=== PATIENT | male | born 1965 | race Caucasian/White ===

== ENCOUNTER 2024-11-18 02:50 | Day surgery (SDC) | payer BC, SELFPAY ==
[2024-11-15 13:43] VITALS: BMI 29.2
--- NOTE | 2024-11-15 13:54 | SUR.PREOP ---
Spoke with patient regarding medication Eliquis. patient verbalizes understanding that the last dose is to be taken on 11/15/2024. Dr Wilburn had requested that patient be off of eliquis for a total of 4 days. 2 days prior to procedure and 2 days after and patient aware of this.
--- OUTSIDE RECORDS SUMMARY | 2024-11-18 02:53 | XMS_ITS | Clinical Summary ---
Author Organization [facility] Address [address] [place] [address] Care Team Providers Care Defect Repairer Glassware Name Role Phone Annabella Wilburn MD Primary Care Provider [phone] Allergies No known active allergies Medications amLODIPine (NORVASC) 2.5 mg tablet Take 1 tablet (2.5 mg total) by mouth daily 09/04/20 23 Active Additional Information Patient taking differently:2.5 mg oralNightly, Indications: hypertension, Informant: Self, Reported on 02/24/2024 atorvastatin (LIPITOR) 80 mg tabletIndication s:Secondary Stroke Prevention Take 1 tablet (80 mg total) by mouth daily 100 tablet 09/04/20 23 Active Additional Information Patient taking differently:80 mg oralDaily (early AM), Indications: Cerebral Thromboembolism Prevention, Secondary Stroke Prevention, Informant: Self, Reported on 02/24/2024 apixaban (ELIQUIS) 5 mg tabletIndication s:atrial fibrillation Take 1 tablet (5 mg total) by mouth 2 (two) times a day 60 tablet 09/03/20 23 Active metoprolol XL (TOPROL-XL) 50 mg extended release tablet Take 1 tablet (50 mg total) by mouth daily 30 tablet 10/03/19 24 Active Additional Information Patient taking differently:50 mg oralDaily (early AM), Indications: heart rate, Informant: Self, Reported on 02/24/2024 Nasonex 50 mcg/actuation nasal sprayIndications :Allergic Rhinitis,Allergi c Rhinitis Prevention Administer 2 sprays into each nostril as needed 01/21/20 24 Active sildenafiL (VIAGRA) 100 mg tabletIndication s:Erectile Dysfunction Take 1 tablet (100 mg total) by mouth daily as needed for erectile dysfunction 01/27/20 24 Active acetaminophen (TYLENOL) 500 mg tabletIndication s:Pain Take 1 tablet (500 mg total) by mouth every 6 (six) hours as needed for pain Active RABEprazole DR (ACIPHEX) 20 mg EC tabletIndication s:Treatment of Non-Bleeding Gastric Disorder Take 1 tablet (20 mg total) by mouth 2 (two) times a day 60 tablet 02/27/20 24 Active Additional Information Patient taking differently:20 mg oralDaily, Indications: Treatment of Non-Bleeding Gastric Disorder, Reported on 03/29/2024 Active Problems Problem Noted Date Diagnosed Date Atrial fibrillation, persistent 02/26/2024 Assessment & Plan (02/27/2024 9:42 AM CDT): S/p ablation/PVI 02/25 - no post-procedure complications noted other than slight oozing from R groin that has improved - cont Eliquis and metop - PPI BID x30d - EP f/u 03/29 History of stroke 02/26/2024 Assessment & Plan (02/26/2024 4:39 PM CDT): Left MCA s/p tenecteplase 08/2023. HTN (hypertension) 02/26/2024 Assessment & Plan (02/26/2024 4:59 PM CDT): Controlled, continue metop Persistent atrial fibrillation 12/24/2023 Obstructive sleep apnea (adult) (pediatric) 02/2024 Sensorineural hearing loss ( SNHL) of left ear with unrestricted hearing of right ear 11/24/2023 Acute ischemic stroke 09/02/2023 Premature beats 09/21/2014 Overview (12/28/2016): Premature beats Chest pain 09/21/2014 Overview (12/28/2016): Chest pain Immunizations Immunization Administration Dates Next Due Influenza, Quadrivalent, Spl it, Preservative Free, Intramuscular 09/03/2023 [employer] SARS-CoV-2 Monovalent Vaccination (12+ Yrs) PURPLE 12/12/2020,11/21/2020 Surgical History Surgery Date Site/Laterality Comments APPENDECTOMY CHOLECYSTECTOMY HERNIA REPAIR VASECTOMY 09/22/1992 - 09/21/1993 Medical History Medical History Date Comments Hx Other Medical GERD, allergic rhinitis, sinusitis, vasectomy, cho; Comments: MAF 08/22/2014 - GERD (gastroesophageal reflux disease) Arrhythmia Hypertension Stroke (HCC) Heart murmur Sleep apnea PONV (postoperative nausea and vomiting) improves with zofran Family History Medical History Relation Name Comments Diabetes Father Diabetes mellit us; Hypertension Father Hypertension; Dementia Mother Dementia; Stroke Paternal Grandfather Stroke; Relation Name Status Comments Father Mother Paternal Grandfather Social History Tobacco Use Types Packs/Day Years Used Date Smoking Tobacco: Never Smokeless Tobacco: Never Tobacco Cessation:Counseling Given: Not Answered Alcohol Use Standard Drinks/Week Comments Yes 0 (1 standard drink = 0.6 oz pur e alcohol) AUDIT-C Answer Date Recorded Q1: How often do you have a drink containing alcohol? 4 or more times a week 02/26/2024 Q2: How many drinks containi ng alcohol do you have on a typical day when you are drinking? 1 or 2 Q3: How often do you have si x or more drinks on one occasion? Never 02/26/2024 PHQ-2 Answer Date Recorded PHQ-2 Total Score (If total score is 3 or more points, staff should administer the PHQ-9) 0 09/03/2023 Personal Safety Answer Date Recorded Have you ever been in or are you currently in a harmful physical or emotional relationship or is someone making you feel afraid or unsafe? 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 Not on file Not on file Obstetrics History Last Filed Vital Signs Vital Sign Reading Time Taken Comments Blood Pressure 129/85 07/02/2024 10:57 AM CDT Pulse 64 07/02/2024 10:57 AM CDT Temperature 36.5 C (97.7 F) 02/27/2024 8:30 AM CDT Respiratory Rate 16 02/27/2024 8:30 AM CDT Oxygen Saturation 95% 06/04/2024 10:37 AM CDT Inhaled Oxygen Concentration - - Weight 96.6 kg (213 lb) 07/02/2024 10:57 AM CDT Height 182.9 cm (6') 07/02/2024 10:57 AM CDT Body Mass Index 28.89 07/02/2024 10:57 AM CDT Plan of Treatment Health Maintenance Due Date Last Done Comments Colon Cancer Screening-Colonoscopy 1963 Hepatitis C Screening 1963 Prostate Cancer Screening-PSA 1963 Hepatitis B Screening 1981 Regular Well Visit/Exam 18-64 1981 Zoster Vaccine (1 of 2) 2013 Covid-19 Vaccine (2023-2 5 season) 2024 12/12/2020, 11/21/2020 Influenza Vaccine (#1) 2024 , 07/14/2020 Depression Screening 09/02/2024 09/02/2023 DTaP/Tdap/Td Vaccine (2 - Td or Tdap) 12/01/2026 12/01/2016 Pneumococcal vaccine <65 Aged Out No longer eligible based on patient's age to complete this topic Medical Devices Implanted Type Area Cotton Jammer Device Identifier Shelf Expiration Date Model / Serial / Lot [employer] Vascade Mvp 6-12fr Venous Closure [id number] - [id number] - [id number] Implanted:Qty: 1 on 02/26/2024 by Shannon Xiong MD at [facility] Vascular Closure Device Right: Femoral Vein [employer] 11/25/2025 800-612C -10U / [id number] / [id number] [employer] Vascade Mvp 6-12fr Venous Closure [id number] - [id number] - [id number] Implanted:Qty: 1 on 02/26/2024 by Shannon Xiong MD at [facility] Vascular Closure Device Right: Femoral Vein [employer] 11/25/2025 800-612C -10U / [id number] / [id number] [employer] Device Vascular Closure Femoral Artery Bioabsorbable Dual Method Vascade 6-7fr Collagen [id number] - [id number] - [id number] Implanted:Qty: 1 on 02/26/2024 by Shannon Xiong MD at [facility] Vascular Closure Device Left: Femoral Vein [employer] 11/18/2025 [id number] -05U / [id number] / [id number] Insurance [facility] Advance Directives For more information, please contact: [phone] Documents on File Type Date Recorded Patient Cook Fry Expl anation ADVANCE DIRECTIVE 01/27/2013 12:00 AM MARYBETH OROZCO * Full Code (Latest Code Status on File) Date Activated Date Inactivated Comments 02/26/2024 4:58 PM 02/27/2024 2:07 PM * Full Code Date Activated Date Inactivated Comments 09/02/2023 9:38 AM 09/03/2023 10:06 PM Care Teams Defect Repairer Glassware Relationship Specialty Start Date End Date Annabella Wilburn MD PCP - General Family Medicine 01/10/21
--- OUTSIDE RECORDS SUMMARY | 2024-11-18 02:53 | XMS_ITS | Patient Health Summary ---
Author Organization [facility] Address [address] [place] [address] Care Team Providers Care Mail Truck Driver Name Role Phone Niko Barba MD Primary Care Provider Note from [facility],non-owned Affiliates and Associated Physician Practices is amultiple site organization consisting of ambulatory clinics and hospital sitesin [place], [place], [place] and [place]. This disclosure is being madepursuant to the Care Everywhere program and may not contain all information available regarding this patient. Last updated 18.[facility] Immunizations * TDAP (7yrs+)(Given 12/01/2016) Social History Tobacco Use Types Packs/Day Years Used Date Smoking Tobacco: Never Assessed Sex and Gender Information Value Date Recorded Sex Assigned at Not on file Gender Identity Not on file Sexual Orientation Not on file Care Teams Mail Truck Driver Relationship Specialty Start Date End Date Niko Barba MD [address] [place] [address] [id number] PCP - General Family Medicine 12/01/16
--- OUTSIDE RECORDS SUMMARY | 2024-11-18 02:53 | XMS_ITS | Referral Summary ---
Author Organization [facility] Address [address] [place] [address] Care Team Providers Care Gravity Flow Irrigator Name Role Phone Niko Barba MD Primary Care Provider [phone] Source Comments [facility],non-owned Affiliates and Associated Physician Practices is amultiple site organization consisting of ambulatory clinics and hospital sitesin [place], [place], [place] and [place]. This disclosure is being madepursuant to the Care Everywhere program and may not contain all information available regarding this patient. Last updated 18.[facility] Immunizations Name Administration Dates Next Due TDAP (7yrs+) 12/01/2016 Social History Tobacco Use Types Packs/Day Years Used Date Smoking Tobacco: Never Assessed Sex and Gender Information Value Date Recorded Sex Assigned at Not on file Gender Identity Not on file Sexual Orientation Not on file Plan of Treatment Not on file Care Teams Gravity Flow Irrigator Relationship Specialty Start Date End Date Niko Barba MD [address] [place] [id number] PCP - General Family Medicine 12/01/16
--- OUTSIDE RECORDS SUMMARY | 2024-11-18 02:53 | XMS_ITS | Referral Summary ---
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 Gender Identity Not on file Sexual Orientation Not on file 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 Not on file Not on file Last Filed Vital Signs Vital Sign Reading [...] 07/02/2024 10:57 AM CDT Plan of Treatment Not on file Medical Devices Implanted Type Area Linux Unix Administrator Device Identifier Shelf Expiration Date Model / Serial / Lot [employer] Vascade Mvp 6-12fr Venous Closure [id number] - [id number] - [id number] Implanted:Qty: 1 on 02/26/2024 by Shannon Xiong MD at [facility] Vascular Closure Device Right: Femoral Vein [employer] 11/25/2025 800-612C -10U / [id number] / [id number] [employer] Vascade Mvp 6-12fr Venous Closure [id number] - [id number] - [id number] Implanted:Qty: 1 on 02/26/2024 by Shannon Xiong MD at [facility] Vascular Closure Device Right: Femoral Vein [employer] 11/25/2025 800-612C -10U / [id number] / [id number] [employer] Device Vascular Closure Femoral Artery Bioabsorbable Dual Method Vascade 6-7fr Collagen [id number] - [id number] - [id number] Implanted:Qty: 1 on 02/26/2024 by Shannon Xiong MD at [facility] Vascular Closure Device Left: Femoral Vein [employer] 11/18/2025 700-580I -05U / [id number] / [id number] [place] Advance Directives For more information, please contact: [phone] Documents on File Type Date Recorded Patient Customer Solutions Teammate Expl anation ADVANCE DIRECTIVE 01/27/2013 12:00 AM MARYBETH OROZCO * Full Code (Latest Code Status on File) Date Activated Date Inactivated Comments 02/26/2024 4:58 PM 02/27/2024 2:07 PM * Full Code Date Activated Date Inactivated Comments 09/02/2023 9:38 AM 09/03/2023 10:06 PM Care Teams Store Stock Associate Relationship Specialty Start Date End Date Annabella Wilburn MD PCP - General Family Medicine 01/10/21
--- OUTSIDE RECORDS SUMMARY | 2024-11-18 02:53 | XMS_ITS | Clinical Summary ---
Author Organization [facility] Address [address] [place] [address] Care Team Providers Care Legal Department Manager Name Role Phone Niko Barba MD Primary Care Provider [phone] Source Comments [facility],non-owned Affiliates and Associated Physician Practices is amultiple site organization consisting of ambulatory clinics and hospital sitesin [place], [place], [place] and [place]. This disclosure is being madepursuant to the Care Everywhere program and may not contain all information available regarding this patient. Last updated 18.[facility] Immunizations Name Administration Dates Next Due TDAP (7yrs+) 12/01/2016 Social History Tobacco Use Types Packs/Day Years Used Date Smoking Tobacco: Never Assessed Sex and Gender Information Value Date Recorded Sex Assigned at Not on file Gender Identity Not on file Sexual Orientation Not on file Plan of Treatment Health Maintenance Due Date Last Done Comments COLOGUARD (AGES 45-75) - COL ON CA SCREENING 1963 COLON MONITORING 1963 COLONOSCOPY - COLON CA SCREENING 1963 CT COLONOGRAPHY - COLON CA SCREENING 1963 Colorectal Cancer Screening 1963 FIT - COLON CA SCREENING 1963 FLEX SIG - COLON CA SCREENING 1963 LIPID TESTING 1963 HIV SCREENING 1978 HEPATITIS C SCREENING 09/25/1981 PNEUMOCOCCAL VACCINE 50+ (1 of 1 - PCV) 2013 ZOSTER VACCINE (1 of 2) 2013 COVID-19 VACCINE ( - 2023-2 5 season) 2024 INFLUENZA VACCINE (#1) 2024 DEPRESSION SCREENING 09/22/2024 DTAP/TDAP/TD VACCINES (2 - T d or Tdap) 12/01/2026 12/01/2016 Respiratory Syncytial Virus (RSV) Vaccine Pt: or over 60 yrs (1 - 1-dose 75+ series) 2038 HEPATITIS B VACCINE Aged Out No longe r eligible based on patient's age to complete this topic HIB VACCINE Aged Out No longer eligi ble based on patient's age to complete this topic HPV VACCINE Aged Out No longer eligi ble based on patient's age to complete this topic MENINGOCOCCAL (Group B) VACCINE Aged Out No longer eligible based on patient's age to complete this topic MENINGOCOCCAL VACCINE Aged Out No adri felicity eligible based on patient's age to complete this topic PNEUMOCOCCAL VACCINE Aged Out No long er eligible based on patient's age to complete this topic Care Teams Legal Department Manager Relationship Specialty Start Date End Date Niko Barba MD [address] [place] [id number] PCP - General Family Medicine 12/01/16
[2024-11-18] MEDS: LACTATED RINGERS 1,000 ML 150 ML IV CONT (08:45)
[2024-11-18 08:47] VITALS: BP 123/82; PULSE 78; RESP 20; TEMP 36; O2SAT 100; BMI 28.8
--- NOTE | 2024-11-18 09:22 | WPDANESEPPF ---
Anes - Initial Pre Proc Eval Procedure: Operation Date: 11/18/24 09:30 Proposed Procedures p Screening Colonoscopy - Conor Mcginnis DO Date/Time: 11/18/24 09:22 Surgeon: Conor Mcginnis DO Pre Op Diagnosis: Screening for malignant neoplasm of colon Patient Data Age: 59 Gender: M Height: 1.83 m Weight: 96.2 kg Last Vital Signs Temp 96.8 F L 11/18/24 08:47 Pulse 78 11/18/24 08:47 Resp 20 11/18/24 08:47 BP 123/82 11/18/24 08:47 Pulse Ox 100 11/18/24 08:47 O2 Del Method Room Air 11/18/24 08:47 Allergies Allergy/AdvReac Type Severity Reaction Status Date / Time No Known Allergies Allergy Mild Verified 11/18/24 08:45 Home Medications ?Medication ?Instructions ?Recorded ?Confirmed ?Type multivitamin 1 tablet PO DAILY 10/30/20 11/18/24 History rabeprazole 20 mg tablet,delayed 20 mg PO DAILY #90 tabs 04/08/24 11/18/24 Rx release (AcipHex) atorvastatin 80 mg tablet 80 mg PO DAILY #90 tabs 07/26/24 11/18/24 Rx sildenafil 100 mg tablet (Viagra) 100 mg PO DAILY PRN sexual 09/06/24 11/15/24 Rx activity #10 tabs mometasone 50 mcg/actuation nasal 2 spray intranasal DAILY #17 grams 09/09/24 11/18/24 Rx spray (Nasonex 24hr Allergy) metoprolol succinate 50 mg 50 mg PO DAILY #90 tabs 09/28/24 11/18/24 Rx tablet,extended release 24 hr amlodipine 2.5 mg tablet See Rx Instructions .Route 10/24/24 11/18/24 Rx .COMPLEX #90 tabs apixaban 5 mg tablet (Eliquis) 5 mg PO BID #180 tabs 10/24/24 11/18/24 Rx Patient hx anesthesia problems: none Family hx anesthesia problems: none Results Review: All pre-operative results and documents have been reviewed as part of the pre-operative evaluation. [facility] Past Medical History Medical History Cerebrovascular accident (CVA) (~08/2023) left parietal, ischemic, 2/2 afib Atrial fibrillation (~2022) Hypertension Normal colonoscopy (~2012) GERD (gastroesophageal reflux disease) Surgical History Surgical History H/O cardiac radiofrequency ablation Hx of cholecystectomy History of vasectomy History of appendectomy Family History Family History Father Diabetes mellitus Hypertension Dementia Cerebrovascular accident Kidney disease Depression Mother Depression Alzheimer disease Sibling Hypertension High cholesterol Social History Social History Smoking status: Never smoker Second hand tobacco smoke exposure: No Alcohol intake: current Drinks per week: 5 Substance use: never Substance use type: does not use Lack of Transportation: No Lack of Food: Never True Current Housing: I Have Housing Concerned About Future Housing: No Difficulty Paying Gas/Electric Bills: No Difficulty Paying for Meds: No Currently Unemployed: No Education: Master's Degree or Higher Difficulty w/ Childcare or Family Care: No Living arrangements: with family Occupation/Education: occupation Gender identity (if verbalized by the patient): Male Spiritual care concerns: No Agree to blood products: Yes Anes - Eval Final PreProcedure Day of Procedure 11/18/24 09:22 Patient weight: normal Lungs: normal air movement Airway: Mallampati scale class II Neurological: alert and oriented Last oral intake: >/= 8 hours ASA classification: III Emergent: no Anesthetic plan: proceed Anesthesia type and monitoring: general GIVS and standard monitoring Results Review: All pre-operative results and documents have been reviewed as part of the pre-operative evaluation. HTN, hyperlipidemia, hx CVA 2022, hx afib, CV now NSR still on AC. Informed Consent: The patient's anesthetic plan and its attendant risks and benefits were discussed with the patient/family/POA. Questions were solicited and answers provided to the satisfaction of the patient/family/POA.
--- NOTE | 2024-11-18 09:30 | PM.IMHP ---
H&P: HPI History of Present Illness Date/Time: 11/18/24 09:30 Chief Complaint: Screening for colorectal cancer Narrative: This is a 59-year-old man who presents for colonoscopy. He has 10 years since his last colonoscopy he denies any hematochezia or melena. He denies family history cancer Review of Systems Review of Systems: All systems reviewed & are unremarkable except as noted in HPI and below Constitutional: Constitutional: Denies chills, Denies fever(s), Denies headache(s) and Denies weight loss Eyes: Eyes: Denies change in vision ENT: Denies dizziness, Denies headache(s), Denies neck mass and Denies throat swelling Cardiovascular: Cardiovascular: Denies chest pain, Denies lightheadedness and Denies dyspnea Respiratory: Respiratory: Denies cough, Denies dyspnea and Denies wheezing Gastrointestinal: Gastrointestinal: Denies abdominal pain, Denies change in bowel habits, Denies nausea and Denies vomiting Genitourinary: Genitourinary: Denies hematuria and Denies dysuria Musculoskeletal: Musculoskeletal: Reports as per HPI Integumentary/Breasts: Skin/Breast: Reports as per HPI Neurologic: Denies dizziness and Denies headache(s) Allergic/Immunologic: Allergic/Immunologic: Denies throat swelling and Denies wheezing PMF Past Medical History Medical History Cerebrovascular accident (CVA) (~08/2023) left parietal, ischemic, 2/2 afib Atrial fibrillation (~2022) Hypertension Normal colonoscopy (~2012) GERD (gastroesophageal reflux disease) Surgical History Surgical History H/O cardiac radiofrequency ablation Hx of cholecystectomy History of vasectomy History of appendectomy Family History Family History Father Diabetes mellitus Hypertension Dementia Cerebrovascular accident Kidney disease Depression Mother Depression Alzheimer disease Sibling Hypertension High cholesterol Social History Social History Smoking status: Never smoker Second hand tobacco smoke exposure: No Alcohol intake: current Drinks per week: 5 Substance use: never Substance use type: does not use Lack of Transportation: No Lack of Food: Never True Current Housing: I Have Housing Concerned About Future Housing: No Difficulty Paying Gas/Electric Bills: No Difficulty Paying for Meds: No Currently Unemployed: No Education: Master's Degree or Higher Difficulty w/ Childcare or Family Care: No Living arrangements: with family Occupation/Education: occupation Gender identity (if verbalized by the patient): Male Spiritual care concerns: No Agree to blood products: Yes Meds Home Medications and Allergies Home Medications ?Medication ?Instructions ?Recorded ?Confirmed ?Type multivitamin 1 tablet PO DAILY 10/30/20 11/18/24 History rabeprazole 20 mg tablet,delayed 20 mg PO DAILY #90 tabs 04/08/24 11/18/24 Rx release (AcipHex) atorvastatin 80 mg tablet 80 mg PO DAILY #90 tabs 07/26/24 11/18/24 Rx sildenafil 100 mg tablet (Viagra) 100 mg PO DAILY PRN sexual 09/06/24 11/15/24 Rx activity #10 tabs mometasone 50 mcg/actuation nasal 2 spray intranasal DAILY #17 grams 09/09/24 11/18/24 Rx spray (Nasonex 24hr Allergy) metoprolol succinate 50 mg 50 mg PO DAILY #90 tabs 09/28/24 11/18/24 Rx tablet,extended release 24 hr amlodipine 2.5 mg tablet See Rx Instructions .Route 10/24/24 11/18/24 Rx .COMPLEX #90 tabs apixaban 5 mg tablet (Eliquis) 5 mg PO BID #180 tabs 10/24/24 11/18/24 Rx Allergies Allergy/AdvReac Type Severity Reaction Status Date / Time No Known Allergies Allergy Mild Verified 11/18/24 08:45 Vital Signs Vital Signs - 24 hr 11/18/24 08:47 Temperature 96.8 F L Pulse Rate 78 Respiratory Rate 20 Blood Pressure 123/82 Pulse Oximetry 100 Oxygen Delivery Room Air Exam Const: General: no acute distress and alert Orientation/consciousness: patient oriented x3 HENMT: Head: normocephalic and atraumatic Ears: hearing grossly normal bilaterally Face/Nose/Sinus: Normal nares present Mouth: Yes Normal oral and palatal mucosa present Eyes: Periorbital: periorbital findings normal Sclera: sclerae normal EOM: EOMs intact bilaterally Neck: Neck: normal visual inspection, no lymphadenopathy and trachea midline Chest: Chest palpation & inspection: normal inspection of the chest Resp: Effort & Inspection: normal respiratory effort Auscultation: clear to auscultation bilaterally Cardio: Jugular venous distension: no JVD Rate: regular rate Rhythm: regular rhythm Heart sounds: S1 normal heart sound present and S2 normal heart sound present Peripheral pulses: Peripheral pulses 2+ throughout GI: Inspection: normal to inspection GI Palp: Yes Soft to palpation, No Tenderness to palpation present (GI), No Guarding due to palpation present (GI) and No Rebound tenderness present Percussion: Yes normal to percussion Auscultation: normal bowel sounds : General: Yes no CVA tenderness Back/Spine/Pelvis: Back: no CVA tenderness Neuro: General: patient oriented x3, no focal motor deficits and CN's II-XI intact bilaterally Cognition (Neuro): normal cognition Speech: normal speech Motor exam (neuro): 5/5 motor strength present throughout Extrem: General: capillary refill normal and no clubbing, cyanosis or edema Assessment and Plan Assessment and plan (1) Screening for colorectal cancer: Code(s): Z12.11 - Encounter for screening for malignant neoplasm of colon; Z12.12 - Encounter for screening for malignant neoplasm of rectum Status: Acute Assessment and Plan: I have recommended colonoscopy. I have discussed the procedure, risks, benefits, and alternatives. Questions were answered. Patient is agreeable to proceed.
[2024-11-18 09:59] VITALS: BP 104/68; PULSE 75; RESP 17; O2SAT 98
[2024-11-18 10:09] VITALS: BP 112/80; PULSE 74; RESP 19; O2SAT 97
[2024-11-18 10:19] VITALS: BP 113/75; PULSE 72; RESP 19; O2SAT 97
== END 2024-11-18 10:29 | disposition home or self-care (01) ==
PROVIDERS: PCP Family Medicine; Visit Provider Surgery
PROC: 0DJD8ZZ Inspection of Lower Intestinal Tract, Via Natural or Artificial Opening Endoscopic (ICD-10-PCS; CPT 45378; principal; 2024-11-18 09:30)
DX: Z12.11 Encounter for screening for malignant neoplasm of colon (principal); K63.5 Polyp of colon; K64.8 Other hemorrhoids
CPT/HCPCS: 45385; 88305; J2003; J2704; J7120